=== PATIENT | female | born 1960 | race Caucasian/White ===

== ENCOUNTER → 2022-04-24 08:41 | Outpatient (BNVA) | payer MEDICARE, SELFPAY | PROVIDERS: PCP Internal Medicine; Visit Provider Hospitalist | DX: J44.9 Chronic obstructive pulmonary disease, unspecified (principal); G47.34 Idiopathic sleep related nonobstructive alveolar hypoventilation; R91.8 Other nonspecific abnormal finding of lung field; F17.200 Nicotine dependence, unspecified, uncomplicated; Z99.81 Dependence on supplemental oxygen | CPT/HCPCS: 99202 ==

== ENCOUNTER 2022-06-30 09:21 | Outpatient (REF) | payer MEDICARE, SELFPAY ==
--- NOTE | 2022-06-30 14:47 | PFT_ITS ---
Forced vital capacity 48%, FEV1 44%, FEV1/FVC ratio is 71. FEF 25-75 is 32% and MVV 55%. Post bronchodilator therapy, there is a slight improvement in the flow volumes. Total lung capacity is 71%. Residual volume 86%. Diffusion capacity 72%. CONCLUSION: Restrictive pulmonary disorder, moderately severe. Obstructive airway disorder, mild to moderate with some response to bronchodilator therapy. Clinical correlation is recommended. MD ALEXEY Montemayor/LOGAN / [phone]
== END 2022-06-30 09:22 | disposition home or self-care (01) ==
LOC: HO.RESP 09:21
PROVIDERS: PCP Internal Medicine; Visit Provider Hospitalist
DX: J44.9 Chronic obstructive pulmonary disease, unspecified (principal); R06.00 Dyspnea, unspecified
CPT/HCPCS: 94060; 94727; 94729

== ENCOUNTER → 2022-07-12 09:22 | Outpatient (BNVA) | payer MEDICARE, SELFPAY | PROVIDERS: PCP Internal Medicine; Visit Provider Hospitalist | DX: J44.9 Chronic obstructive pulmonary disease, unspecified (principal); G47.34 Idiopathic sleep related nonobstructive alveolar hypoventilation; R91.8 Other nonspecific abnormal finding of lung field; F17.210 Nicotine dependence, cigarettes, uncomplicated | CPT/HCPCS: 99212 ==

== ENCOUNTER → 2023-01-09 10:02 | Outpatient (BNVA) | payer MEDICARE, MEDICAID, SELFPAY | PROVIDERS: PCP Internal Medicine; Visit Provider Hospitalist | DX: J44.9 Chronic obstructive pulmonary disease, unspecified (principal); G47.34 Idiopathic sleep related nonobstructive alveolar hypoventilation; R91.8 Other nonspecific abnormal finding of lung field; F17.210 Nicotine dependence, cigarettes, uncomplicated | CPT/HCPCS: 99212 ==

== ENCOUNTER 2023-12-14 13:32 | Outpatient (AMB) | payer MEDICARE, MEDICAID, SELFPAY ==
[2023-12-14 13:56] VITALS: BP 110/74; PULSE 67; O2SAT 95; BMI 36.0
--- NOTE | 2023-12-14 13:56 | A.OFFVIS_ITS ---
Intake Vital Signs 12/14/23 13:56 Height 5 ft 7 in Weight 230 lb BMI 36.0 BP 110/74 Blood Pressure Location Lt brachial Position Sitting Pulse 67 Pulse Source Pulse Oximeter Pulse Oximetry (%) 95 Oxygen Delivery Method Room Air Intake Visit Reasons: Asthma Allergies amoxicillin [AMOXICILLIN] Allergy (Unknown, Unverified 12/14/23 14:01) UNKNOWN cephalexin [From KEFLEX] Allergy (Unknown, Unverified 12/14/23 14:01) UNKNOWN codeine [CODEINE] Allergy (Unknown, Unverified 12/14/23 14:01) UNKNOWN erythromycin base [ERYTHROMYCIN BASE] Allergy (Unknown, Unverified 12/14/23 14:01) UNKNOWN oxycodone [OXYCODONE] Allergy (Unknown, Unverified 12/14/23 14:) UNKNOWN tetracycline [TETRACYCLINE] Allergy (Unknown, Unverified 12/14/23 14:) UNKNOWN HPI HPI Comments History of Present Illness Details The patient is a 63-year-old woman with a known history of tobacco dependency COPD and nocturnal hypoxia. She has been followed closely by Pulmonary. Now she is coming for a new evaluation here at [place]. The patient states that she has been doing well on her current respiratory inhalers which include Symbicort and Combivent. Although she typically wakes up with a productive cough and typically has productive cough throughout the day but to a less extent. The mucus tends to be white or clear in color. It tends to be tenacious and difficult to clear at times. She does have bronchitis or chronic cough most of the year consistent with chronic bronchitis. She did have a CT scan of the chest as part of the lung cancer screening program done [facility]. Demonstrated moderate amount of upper lung zone predominant emphysema. She also had Mohs a pattern suggesting small airways disease and bronchitis. In addition to that she did have subcentimeter pulmonary nodules. Does appear to be stable and unchanged. She is going to continue participating in the lung cancer screening program. The patient also uses oxygen at nighttime. The oxygen therapy is affecting beneficial. She has had a sleep s tudy back in 2019 which was a home sleep study demonstrating no evidence of any sleep apnea. The patient does try to use the oxygen every night. However, she finds that sometimes and nasal cannulas fall off and she is not able to keep him on. She has tried mass is and also tried taping the cannulas but unable to keep him on for some apparent reason. She has been on 3 L. Will go ahead and perform a overnight oximetry under 3 L to make sure that she is getting adequate oxygenation. Patient also still smoking. She is considered vaping. She understands the risk is benefits of both. She is willing to try the Nicotrol inhaler. I do believe that this will be a better option since he does not have any lipid inhalants and and smoke to minimize injury to the lungs. The patient still smoking about a pack a day. She is willing to try the Nicotrol inhaler and also to the pharmacy. 01/09/2023 the patient is here for a pulmo liasy follow-up visit. Overall the patient has been doing well. She did get the Symbicort. Has been very effective for her. In addition to this she has been using the Combivent. She can also use it as needed. She does not have any other rescue inhalers. This point I do not believe she needs any additional inhalers. The patient has been using the oxygen at nighttime. She does struggle with some that she has a hard time keeping it on. It also irritates her nose. Therefore she has not been using this regularly. Sometimes she feels like she sleeps better without it. We did review the overnight oximetry demonstrating the hypoxia down to 79%. Will go ahead and request a oxygen mask for her that she can use instead. If so that does not work even always repeat the overnight oximetry to see if she still needs the oxygen. She is participating in the lung cancer screening program. This on at [facility]. Her last CT scan was in December 2022. She was told about some new pulmonary nodules which are subcentimeter in size. Her next CT scans in year's time. 12/14/2023 the patient is here for a pulmonary follow-up visit. Overall she is doing about the same. Still complains of dyspnea on exertion. Still has a cough. Uftc-ft-uvbbqlft severity. She has been on Symbicort. Will go ahead and switch over to Breztri with the hope that she gets additional bronchodilator effect. In addition to that she does have a Combivent inhaler. She does not use it all time her. She has been followed closely by Cardiology at [facility]. 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 She is also participating in the lung cancer screening program at [facility]. Her next CT scan should be the spring. the patient has been using the oxygen at nighttime. The oxygen therapy has been affecting beneficial. She will continue use the oxygen at nighttime. She does not need any portability at this time. She does get irritations in her nose because of the nasal cannula. Will request an OxyMask from her DME, Donna. [facility] Medical History (Updated 12/15/23 @ 10:03 by Alex Garcia MD) Pulmonary artery aneurysm Pulmonary arteriovenous aneurysm Pulmonary nodules Tobacco dependence COPD (chronic obstructive pulmonary disease) Nocturnal hypoxia Social History Patient Tobacco Use Status: Current everyday Tobacco user Cigarette Packs Per Day: 1 Cigarettes Per Day: 5 Years Smoked: 40 Years Review of Systems Const Denies fever(s) Eyes Denies change in vision ENT Denies change in voice and Reports nasal congestion Card Denies chest pain and Reports dyspnea on exertion Resp Reports cough and Reports dyspnea on exertion GI Reports no additional complaints Reports no additional complaints Musc Reports no additional complaints Skin/Breast Denies rash Endo Denies flushing Dennis/Lymph Denies easy bleeding Physical Exam Vital Signs: Last Vital Signs Pulse 67 12/14/23 13:56 BP 110/74 12/14/23 13:56 Pulse Ox 95 12/14/23 13:56 Oxygen Delivery Method Room Air 12/14/23 13:56 BMI result Body Mass Index 36.0 Const General: comfortable HEENT Head: Yes normal to inspection Eyes General: appearance normal, both eyes and all related structures Neck Neck: Yes supple Chest Chest palpation & inspection: normal inspection of the chest Resp Effort & Inspection: normal respiratory effort Auscultation: no rhonchi and diminished lung sounds Cardio Rate: regular rate Rhythm: regular rhythm Heart sounds: S1 normal heart sound present and S2 normal heart sound present GI Inspection: Yes normal to inspection Extrem General: Yes no clubbing, cyanosis or edema Assessment & Plan Assessment & Plan (1) COPD (chronic obstructive pulmonary disease): Code(s): J44.9 - Chronic obstructive pulmonary disease, unspecified Qualifiers: Chronic bronchitis type: mixed simple and mucopurulent COPD type: chr onic bronchitis Qualified Code(s): J41.8 - Mixed simple and mucopurulent chronic bronchitis (2) Nocturnal hypoxia: Comment: Due to significant emphysema resulting chronic respiratory failure Code(s): G47.34 - Idiopathic sleep related nonobstructive alveolar hypoventilation (3) Pulmonary nodules: Code(s): R91.8 - Other nonspecific abnormal finding of lung field (4) Pulmonary artery aneurysm: Code(s): I28.1 - Aneurysm of pulmonary artery Plan stop Symbicort start Breztri 2 puff BID Combivent QID continue with 2 L oxygen while sleeping, will request an oxymask due to the cannula causing irritation of her nose continue with the lung cancer screening program at [facility] spring 20[address] Doe [place] children assessing her pulmonary aneurysm Tobacco cessation follow-up in 8-12 months Medications: New bqfdodxako-vkhyzdzn-vkavjhmwhs 160-9-4.8 mcg/actuation (Breztri Aerosphere) 2 inhalations inhalation BID 10.7 grams 11RF Quality Reporting (2019) Adult ([facility] 138/10/25/68) Smoking risk assessment performed?: Yes Patient Tobacco Use Status: Current everyday Tobacco user Coding Level of Care Code Est Pt Level 4 (95317) Diagnoses Mixed simple and mucopurulent chronic bronchitis J41.8 Chronic bronchitis type: mixed simple and mucopurulent COPD type: chronic bronchitis Nocturnal hypoxia G47.34 Pulmonary nodules R91.8 Pulmonary artery aneurysm I28.1 Time Spent (min) 17
== END 2023-12-14 14:27 | disposition home or self-care (01) ==
PROVIDERS: PCP Internal Medicine; Visit Provider Hospitalist
DX: J41.8 Mixed simple and mucopurulent chronic bronchitis (principal); G47.34 Idiopathic sleep related nonobstructive alveolar hypoventilation; R91.8 Other nonspecific abnormal finding of lung field; I28.1 Aneurysm of pulmonary artery
CPT/HCPCS: 99214

== ENCOUNTER → 2023-12-14 13:32 | Outpatient (BNVA) | payer MEDICARE, MEDICAID, SELFPAY | PROVIDERS: PCP Internal Medicine; Visit Provider Hospitalist | DX: J41.8 Mixed simple and mucopurulent chronic bronchitis (principal); G47.34 Idiopathic sleep related nonobstructive alveolar hypoventilation; R91.8 Other nonspecific abnormal finding of lung field; I28.1 Aneurysm of pulmonary artery | CPT/HCPCS: 99212 ==

== ENCOUNTER 2024-06-20 10:05 | Outpatient (AMB) | payer MEDICARE, MEDICAID, SELFPAY ==
[2024-06-20 10:14] VITALS: BP 118/70; PULSE 66; O2SAT 95; BMI 35.1
--- NOTE | 2024-06-20 10:14 | MHC.OFFVIS ---
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 Allergies amoxicillin [AMOXICILLIN] Allergy (Unknown, Unverified 06/20/24 10:16) UNKNOWN cephalexin [From KEFLEX] Allergy (Unknown, Unverified 06/20/24 10:16) UNKNOWN codeine [CODEINE] Allergy (Unknown, Unverified 06/20/24 10:16) UNKNOWN erythromycin base [ERYTHROMYCIN BASE] Allergy (Unknown, Unverified 06/20/24 10:16) UNKNOWN oxycodone [OXYCODONE] Allergy (Unknown, Unverified 06/20/24 10:16) UNKNOWN tetracycline [TETRACYCLINE] Allergy (Unknown, Unverified 06/20/24 10:16) UNKNOWN HPI Comments Details: The patient is a 63-year-old woman with a known history of tobacco dependency COPD and nocturnal hypoxia. She has been followed closely by Pulmonary. Now she is coming for a new evaluation here at [place]. The patient states that she has been doing well on her current respiratory inhalers which include Symbicort and Combivent. Although she typically wakes up with a productive cough and typically has productive cough throughout the day but to a less extent. The mucus tends to be white or clear in color. It tends to be tenacious and difficult to clear at times. She does have bronchitis or chronic cough most of the year consistent with chronic bronchitis. She did have a CT scan of the chest as part of the lung cancer screening program done [facility]. Demonstrated moderate amount of upper lung zone predominant emphysema. She also had Mohs a pattern suggesting small airways disease and bronchitis. In addition to that she did have subcentimeter pulmonary nodules. Does appear to be stable and unchanged. She is going to continue participating in the lung cancer screening program. The patient also uses oxygen at nighttime. The oxygen therapy is affecting beneficial. She has had a sleep study back in 2019 which was a home sleep study demonstrating no evidence of any sleep apnea. The patient does try to use the oxygen every night. However, she finds that sometimes and nasal cannulas fall off and she is not able to keep him on. She has tried mass is and also tried taping the cannulas but unable to keep him on for some apparent reason. She has been on 3 L. Will go ahead and perform a overnight oximetry under 3 L to make sure that she is getting adequate oxygenation. Patient also still smoking. She is considered vaping. She understands the risk is benefits of both. She is willing to try the Nicotrol inhaler. I do believe that this will be a better option since he does not have any lipid inhalants and and smoke to minimize injury to the lungs. The patient still smoking about a pack a day. She is willing to try the Nicotrol inhaler and also to the pharmacy. 01/09/2023 the patient is here for a pulmonary follow-up visit. Overall the patient has been doing well. She did get the Symbicort. Has been very effective for her. In addition to this she has been using the Combivent. She can also use it as needed. She does not have any other rescue inhalers. This point I do not believe she needs any additional inhalers. The patient has been using the oxygen at nighttime. She does struggle with some that she has a hard time keeping it on. It also irritates her nose. Therefore she has not been using this regularly. Sometimes she feels like she sleeps better without it. We did review the overnight oximetry demonstrating the hypoxia down to 79%. Will go ahead and request a oxygen mask for her that she can use instead. If so that does not work even always repeat the overnight oximetry to see if she still needs the oxygen. She is participating in the lung cancer screening program. This on at [facility]. Her last CT scan was in December 2022. She was told about some new pulmonary nodules which are subcentimeter in size. Her next CT scans in year's time. 12/14/2023 the patient is here for a pulmonary follow-up visit. Overall she is doing about the same. Still complains of dyspnea on exertion. Still has a cough. Jphw-dg-pvcesoay severity. She has been on Symbicort. Will go ahead and switch over to Breztri with the hope that she gets additional bronchodilator effect. In addition to that she does have a Combivent inhaler. She does not use it all time her. She has been followed closely by Cardiology at [facility]. 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 She is also participating in the lung cancer screening program at [facility]. Her next CT scan should be the spring. the patient has been using the oxygen at nighttime. The oxygen therapy has been affecting beneficial. She will continue use the oxygen at nighttime. She does not need any portability at this time. She does get irritations in her nose because of the nasal cannula. Will request an OxyMask from her DME, Donna. 06/20/2024 the patient is here for pulmonary follow-up visit. The patient has been sickly now for several weeks. She started developing sinus pressure congestion. Also productive cough. She did go to an urgent care she was given a course of cephalosporin. She has multiple allergies. Makes him difficult to treat. Although the antibiotics did not help her. She continues to have significant congestion in the chest area moderate severity. No significant wheezing at this time. We did talk about trying levofloxacin and also treat atypical organisms and also broader spectrum overall since she already tried and failed 1 antibiotic. She was closely for any adverse effects including tendinitis. [facility] Medical History (Updated 12/15/23 @ 10:03 by Alex Garcia MD) Pulmonary artery aneurysm Pulmonary arteriovenous aneurysm Pulmonary nodules Tobacco dependence COPD (chronic obstructive pulmonary disease) Nocturnal hypoxia Social History Patient Tobacco Use Status: Current everyday Tobacco user Cigarette Packs Per Day: 1 Cigarettes Per Day: 5 Years Smoked: 40 Years Review of Systems Const Reports fatigue and Denies fever(s) Eyes Denies change in vision ENT Denies change in voice, Reports nasal congestion, Reports nasal discharge, Reports sinus pain and Reports sinus pressure Card Denies chest pain and Reports dyspnea on exertion Resp Reports cough and Reports dyspnea on exertion GI Reports no additional complaints Reports no additional complaints Musc Reports no additional complaints Skin/Breast Denies rash Endo Reports fatigue and Denies flushing Dennis/Lymph Denies easy bleeding Physical Exam Vital Signs: Last Vital Signs Pulse 66 06/20/24 10:14 BP 118/70 06/20/24 10:14 Pulse Ox 95 06/20/24 10:14 Oxygen Delivery Method Room Air 06/20/24 10:14 BMI result Body Mass Index 35.1 Const General: comfortable HEENT Head: Yes normal to inspection Eyes General: appearance normal, both eyes and all related structures Neck Neck: Yes supple Chest Chest palpation & inspection: normal inspection of the chest Resp Effort & Inspection: normal respiratory effort Auscultation: no rhonchi and diminished lung sounds Cardio Rate: regular rate Rhythm: regular rhythm Heart sounds: S1 normal heart sound present and S2 normal heart sound present GI Inspection: Yes normal to inspection Extrem General: Yes no clubbing, cyanosis or edema Quality Reporting (2019) Adult ([facility] 138///) Smoking risk assessment performed?: Yes Patient Tobacco Use Status: Current everyday Tobacco user Assessment & Plan Assessment & Plan (1) COPD (chronic obstructive pulmonary disease): Code(s): J44.9 - Chronic obstructive pulmonary disease, unspecified Category: Medical Qualifiers: COPD type: chronic bronchitis Chronic bronchitis type: mixed simple and mucopurulent Qualified Code(s): J41.8 - Mixed simple and mucopurulent chronic bronchitis (2) Nocturnal hypoxia: Comment: Due to significant emphysema resulting chronic respiratory failure Code(s): G47.34 - Idiopathic sleep related nonobstructive alveolar hypoventilation Category: Medical (3) Pulmonary nodules: Code(s): R91.8 - Other nonspecific abnormal finding of lung field Category: Medical (4) Pulmonary artery aneurysm: Code(s): I28.1 - Aneurysm of pulmonary artery Category: Medical Plan restart Symbicort start Incruse stopped Breztri 2 puff BID (not effective start Levaquin afrin x 3-5 days Use nebulizer twice a day Combivent QID continue with 2 L oxygen while sleeping, will request an oxymask due to the cannula causing irritation of her nose continue with the lung cancer screening program at [facility] spring [address] Brook [place] children assessing her pulmonary aneurysm Tobacco cessation follow-up in 8-12 months Medications: New budesonide-formoterol 160-4.5 mcg/actuation 2 puffs inhalation BID 30 days 10.2 grams 11RF J44.89 - Other specified chronic obstructive pulmonary disease umeclidinium 62.5 mcg/actuation (Incruse Ellipta) 1 inh inhalation DAILY 30 days 30 ea 11RF J45.909 - Unspecified asthma, uncomplicated prednisone PO daily; Take 2 tabs daily x 5 days, then 1 tablet daily x 5 days 10 days 15 tabs 0RF levofloxacin 500 mg PO DAILY 14 days 14 tabs 0RF albuterol sulfate 2.5 mg (3 mL) inhalation BID 30 days 180 mL 11RF J41.8 - Mixed simple and mucopurulent chronic bronchitis Coding Level of Care Code Est Pt Level 4 (93452) Diagnoses Mixed simple and mucopurulent chronic bronchitis J41.8 COPD type: chronic bronchitis Chronic bronchitis type: mixed simple and mucopurulent Nocturnal hypoxia G47.34 Pulmonary nodules R91.8 Pulmonary artery aneurysm I28.1 Time Spent (min) 17
== END 2024-06-20 10:34 | disposition home or self-care (01) ==
PROVIDERS: PCP Internal Medicine; Visit Provider Hospitalist
DX: J41.8 Mixed simple and mucopurulent chronic bronchitis (principal); G47.34 Idiopathic sleep related nonobstructive alveolar hypoventilation; R91.8 Other nonspecific abnormal finding of lung field; I28.1 Aneurysm of pulmonary artery
CPT/HCPCS: 99214

== ENCOUNTER → 2024-06-20 10:05 | Outpatient (BNVA) | payer MEDICARE, MEDICAID, SELFPAY | PROVIDERS: PCP Internal Medicine; Visit Provider Hospitalist | DX: J41.8 Mixed simple and mucopurulent chronic bronchitis (principal); J43.9 Emphysema, unspecified; I28.1 Aneurysm of pulmonary artery; G47.34 Idiopathic sleep related nonobstructive alveolar hypoventilation; R91.8 Other nonspecific abnormal finding of lung field; F17.210 Nicotine dependence, cigarettes, uncomplicated; Z99.81 Dependence on supplemental oxygen | CPT/HCPCS: 99212 ==

== ENCOUNTER 2025-06-19 14:03 | Outpatient (AMB) | payer MEDICARE, MEDICAID, SELFPAY ==
--- NOTE | 2025-06-19 14:10 | A.OFFVIS_ITS ---
Vital Signs 06/19/25 14:12 Height 5 ft 7 in BMI Reason not done Patient refused/unable BP 120/80 Blood Pressure Location Rt brachial Position Sitting Pulse 70 Pulse Source Pulse Oximeter Pulse Oximetry (%) 95 Oxygen Delivery Method Room Air Intake Visit Reasons: asthma Accompanied by: Self / Same As Patient Allergies amoxicillin (AMOXICILLIN) Allergy (Unknown, Verified 06/19/25 14:22) UNKNOWN cephalexin (From KEFLEX) Allergy (Unknown, Verified 06/19/25 14:22) UNKNOWN codeine (CODEINE) Allergy (Unknown, Verified 06/19/25 14:22) UNKNOWN erythromycin base (ERYTHROMYCIN BASE) Allergy (Unknown, Verified 06/19/25 14:22) UNKNOWN oxycodone (OXYCODONE) Allergy (Unknown, Verified 06/19/25 14:22) UNKNOWN tetracycline (TETRACYCLINE) Allergy (Unknown, Verified 06/19/25 14:22) UNKNOWN HPI Comments Details: The patient is a 64-year-old woman with a known history of tobacco dependency COPD and nocturnal hypoxia. She has been followed closely by Pulmonary. Now she is coming for a new evaluation here at [place]. The patient states that she has been doing well on her current respiratory inhalers which include Symbicort and Combivent. Although she typically wakes up with a productive cough and typically has productive cough throughout the day but to a less extent. The mucus tends to be white or clear in color. It tends to be tenacious and difficult to clear at times. She does have bronchitis or chronic cough most of the year consistent with chronic bronchitis. She did have a CT scan of the chest as part of the lung cancer screening program done [facility]. Demonstrated moderate amount of upper lung zone predominant emphysema. She also had Mohs a pattern suggesting small airways disease and bronchitis. In addition to that she did have subcentimeter pulmonary nodules. Does appear to be stable and unchanged. She is going to continue participating in the lung cancer screening program. The patient also uses oxygen at nighttime. The oxygen therapy is affecting beneficial. She has had a sleep study back in 2019 which was a home sleep study demonstrating no evidence of any sleep apnea. The patient does try to use the oxygen every night. However, she finds that sometimes and nasal cannulas fall off and she is not able to keep him on. She has tried mass is and also tried taping the cannulas but unable to keep him on for some apparent reason. She has been on 3 L. Will go ahead and perform a overnight oximetry under 3 L to make sure that she is getting adequate oxygenation. Patient also still smoking. She is considered vaping. She understands the risk is benefits of both. She is willing to try the Nicotrol inhaler. I do believe that this will be a better option since he does not have any lipid inhalants and and smoke to minimize injury to the lungs. The patient still smoking about a pack a day. She is willing to try the Nicotrol inhaler and also to the pharmacy. 01/09/2023 the patient is here for a pulmonary follow-up visit. Overall the patient has been doing well. She did get the Symbicort. Has been very effective for her. In addition to this she has been using the Combivent. She can also use it as needed. She does not have any other rescue inhalers. This point I do not believe she needs any additional inhalers. The patient has been using the oxygen at nighttime. She does struggle with some that she has a hard time keeping it on. It also irritates her nose. Therefore she has not been using this regularly. Sometimes she feels like she sleeps better without it. We did review the overnight oximetry demonstrating the hypoxia down to 79%. Will go ahead and request a oxygen mask for her that she can use instead. If so that does not work even always repeat the overnight oximetry to see if she still needs the oxygen. She is participating in the lung cancer screening program. This on at [facility]. Her last CT scan was in December 2022. She was told about some new pulmonary nodules which are subcentimeter in size. Her next CT scans in year's time. 12/14/2023 the patient is here for a pulmonary follow-up visit. Overall she is doing about the same. Still complains of dyspnea on exertion. Still has a cough. [id number]-[id number]-lthabtnu severity. She has been on Symbicort. Will go ahead and switch over to Breztri with the hope that she gets additional bronchodilator effect. In addition to that she does have a Combivent inhaler. She does not use it all time her. She has been followed closely by Cardiology at [facility]. 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 She is also participating in the lung cancer screening program at [facility]. Her next CT scan should be the spring. the patient has been using the oxygen at nighttime. The oxygen therapy has been affecting beneficial. She will continue use the oxygen at nighttime. She does not need any portability at this time. She does get irritations in her nose because of the nasal cannula. Will request an OxyMask from her DME, [employer]. 06/20/2024 the patient is here for pulmonary follow-up visit. The patient has been sickly now for several weeks. She started developing sinus pressure congestion. Also productive cough. She did go to an urgent care she was given a course of cephalosporin. She has multiple allergies. Makes him difficult to treat. Although the antibiotics did not help her. She continues to have significant congestion in the chest area moderate severity. No significant wheezing at this time. We did talk about trying levofloxacin and also treat atypical organisms and also broader spectrum overall since she already tried and failed 1 antibiotic. She was closely for any adverse effects including tendinitis. 06/19/2025 the patient is here for pulmonary follow-up visit. The patient having hard time. She recently was diagnosed with a cardiac arrhythmia. She is not sure the name. She also had daytime drowsiness and an elevated [place] score of 11/24. Will have her get a sleep study this time. In addition to that she does complain of productive cough chest congestion. She has tried the inhalers with only partial improvement. Unfortunately she continues to smoke cigarettes. She understands that this is making things worse. In the meantime will go ahead and start him on azithromycin 3 times a week for chronic bronchitis. She also will be a good candidate for Daliresp will start her on low dose of 250 mcg so she can start every other day and then she can take daily when she tolerates it. When she returns in 3 months we can increase the medication to the full dose of 500 mcg. She will have the sleep study will do a home sleep study at this point and hard come back review the results. If she has not issues prior to this visit she can always call for further recommendations. [facility] Medical History (Updated 06/19/25 @ 14:20 by Alex Garcia MD) KATIE (obstructive sleep apnea) Pulmonary artery aneurysm Pulmonary arteriovenous aneurysm Pulmonary nodules Tobacco dependence COPD (chronic obstructive pulmonary disease) Nocturnal hypoxia Social History Patient Tobacco Use Status: Current everyday Tobacco user Cigarette Packs Per Day: 1 Cigarettes Per Day: 5 Years Smoked: 40 Years Review of Systems Const Reports fatigue and Denies fever(s) Eyes Denies change in vision ENT Denies change in voice, Reports nasal congestion, Reports nasal discharge, Reports sinus pain and Reports sinus pressure Card Denies chest pain and Reports dyspnea on exertion Resp Reports cough and Reports dyspnea on exertion GI Reports no additional complaints Reports no additional complaints Musc Reports no additional complaints Skin/Breast Denies rash Endo Reports fatigue and Denies flushing Dennis/Lymph Denies easy bleeding Physical Exam Vital Signs: Last Vital Signs Pulse 70 06/19/25 14:12 BP 120/80 06/19/25 14:12 Pulse Ox 95 06/19/25 14:12 Oxygen Delivery Method Room Air 06/19/25 14:12 Const General: comfortable HEENT Head: Yes normal to inspection Eyes General: appearance normal, both eyes and all related structures Neck Neck: Yes supple Chest Chest palpation & inspection: normal inspection of the chest Resp Effort & Inspection: normal respiratory effort Auscultation: no rhonchi and diminished lung sounds Cardio Rate: regular rate Rhythm: regular rhythm Heart sounds: S1 normal heart sound present and S2 normal heart sound present GI Inspection: Yes normal to inspection Extrem General: Yes no clubbing, cyanosis or edema Assessment & Plan Assessment & Plan (1) COPD (chronic obstructive pulmonary disease): Code(s): J44.9 - Chronic obstructive pulmonary disease, unspecified Category: Medical Qualifiers: COPD type: chronic bronchitis Chronic bronchitis type: mixed simple and mucopurulent Qualified Code(s): J41.8 - Mixed simple and mucopurulent chronic bronchitis (2) Nocturnal hypoxia: Comment: Due to significant emphysema resulting chronic respiratory failure Code(s): G47.34 - Idiopathic sleep related nonobstructive alveolar hypoventilation Category: Medical (3) Pulmonary nodules: Code(s): R91.8 - Other nonspecific abnormal finding of lung field Category: Medical (4) Pulmonary artery aneurysm: Code(s): I28.1 - Aneurysm of pulmonary artery Category: Medical (5) KATIE (obstructive sleep apnea): Code(s): G47.33 - Obstructive sleep apnea (adult) (pediatric) Category: Medical Plan Breztri 2 puff BID Use nebulizer twice a day Combivent QID continue with 2 L oxygen while sleeping, will request an oxymask due to the cannula causing irritation of her nose continue with the lung cancer screening program at [facility] Azithromycin 250mg MWF Daliresp 250mcg daily Home PSG follow-up in 6 months Orders: Orders RT home sleep study 06/19/25 G47.33 - Obstructive sleep apnea (adult) (pediatric) Medications: New azithromycin Take 1 tablet on Sunday/Sunday/Sunday 250 mg PO 3XW 12 tabs 1RF 28 days K21.9 - Gastro-esophageal reflux disease without esophagitis roflumilast (Daliresp) 250 mcg PO DAILY 30 tabs 11RF 30 days J44.9 - Chronic obstructive pulmonary disease, unspecified Coding Level of Care Code Est Pt Level 4 (15869) Complex EM visit Add On G2211 Diagnoses Mixed simple and mucopurulent chronic bronchitis J41.8 COPD type: chronic bronchitis Chronic bronchitis type: mixed simple and mucopurulent Nocturnal hypoxia G47.34 Pulmonary nodules R91.8 Pulmonary artery aneurysm I28.1 KATIE (obstructive sleep apnea) G47.33 Time Spent (min) 17
[2025-06-19 14:12] VITALS: BP 120/80; PULSE 70; O2SAT 95
== END 2025-06-19 14:43 | disposition home or self-care (01) ==
PROVIDERS: PCP Internal Medicine; Visit Provider Hospitalist
DX: J41.8 Mixed simple and mucopurulent chronic bronchitis (principal); G47.34 Idiopathic sleep related nonobstructive alveolar hypoventilation; R91.8 Other nonspecific abnormal finding of lung field; I28.1 Aneurysm of pulmonary artery; G47.33 Obstructive sleep apnea (adult) (pediatric)
CPT/HCPCS: 99214; G2211

== ENCOUNTER → 2025-06-19 14:03 | Outpatient (BNVA) | payer MEDICARE, OTHER, SELFPAY | PROVIDERS: PCP Internal Medicine; Visit Provider Hospitalist | DX: J41.8 Mixed simple and mucopurulent chronic bronchitis (principal); G47.34 Idiopathic sleep related nonobstructive alveolar hypoventilation; R91.8 Other nonspecific abnormal finding of lung field; I28.1 Aneurysm of pulmonary artery; G47.33 Obstructive sleep apnea (adult) (pediatric); Z99.89 Dependence on other enabling machines and devices | CPT/HCPCS: 99212 ==